=== PATIENT | female | born 1995 | race Caucasian/White ===

== ENCOUNTER 2020-10-11 08:07 | Emergency (ER) | payer OTHER, SELFPAY ==
[2020-10-11 08:12] VITALS: BP 137/70; PULSE 85; RESP 16; TEMP 37.1; O2SAT 99
--- NOTE | 2020-10-11 08:30 | ED.URI ---
HPI - URI/Sore Throat General Chief Complaint: Upper Respiratory Infection Stated Complaint: COLD SYMPTOMS/PRESSURE IN EARS Source: patient Mode of arrival: ambulatory Limitations: no limitations History of Present Illness HPI Narrative: 25-year-old female presents to urgent care with complaints of cold-like symptoms for the last 4 to 5 days. Patient complains of runny nose, nasal congestion, bilateral ear pressure, fatigue, watery eyes and dry cough. Patient reports history of ear infections. Patient has been taking the counter Sudafed, DayQuil, NyQuil and Zicam with minimal relief. Patient is non-smoker. Patient denies sick contacts. Patient denies recent travel but reports that she is due to fly in the next few days. Patient reports that she has received her Covid vaccine and declines Covid testing today. MD elicited complaint: cough, rhinorrhea and nasal congestion Onset (ago): day(s) (4) Able to tolerate fluids by mouth: Yes Exacerbating factors: nothing Relieving factors: nothing Treatments prior to arrival: cold medicine Related Data Home Medications Medication Instructions Recorded Confirmed levonorgestrel 1 device I-UTERINE ONCE 11/19/19 10/11/20 Allergies Allergy/AdvReac Type Severity Reaction Status Date / Time No Known Allergies Allergy Verified 10/11/20 08:14 Review of Systems Constitutional: Constitutional: Denies chills, Reports fatigue, Denies fever(s) and Denies weakness ENT: Denies dysphagia, Denies dizziness, Denies epistaxis, Reports nasal congestion and Denies sore throat Comments: Runny nose, bilateral ear pressure Respiratory: Respiratory: Denies chest congestion, Reports cough, Denies dyspnea and Denies wheezing Gastrointestinal: Gastrointestinal: Denies abdominal pain, Denies diarrhea, Denies nausea and Denies vomiting Integumentary/Breasts: Skin/Breast: Denies rash Neurologic: Denies vertigo, Denies dizziness, Denies syncope and Denies focal weakness [facility] Past Medical History Medical History Anxiety Family History Family History Mother Patient's mother is in good health Father Patient's father is in good health Social History Social History (Updated 10/11/20 @ 08:32 by Samantha Khan APRN) Smoking status: Never smoker Alcohol intake: never Comments At time of signature, I agree with nursing past medical, surgical, social and family history. There is no relevant family history pertinent to the presenting complaint. Exam Const: General: healthy appearing, no acute distress and alert Nutritional Appearance: well nourished Orientation/consciousness: patient oriented x3 HENMT: Ears: external ears normal General nose exam: Normal external nose present Mouth: Yes Normal oral and palatal mucosa present and Yes lip normal Throat: uvula midline Other: Moderate nasal congestion noted, mild erythema and bulging noted to right TM. Bilateral TMs intact. Fluid level noted bilaterally Neck: Neck: normal visual inspection Resp: Effort & Inspection: normal respiratory effort Auscultation: clear to auscultation bilaterally Cardio: Rate: regular rate Rhythm: regular rhythm Heart sounds: no murmurs Skin: General skin exam: normal color Rashes: no rashes Neuro: General: patient oriented x3, moves all extremities, no meningeal signs and CN's II-XI intact bilaterally Psych: Appearance: grossly normal Affect: normal affect Attitude: cooperative Thought content: Yes Normal thought content present Course Vital Signs Vital signs: Vital Signs Temperature 37.1 C 10/11/20 08:12 Pulse Rate 85 10/11/20 08:12 Respiratory Rate 16 10/11/20 08:12 Blood Pressure 137/70 10/11/20 08:12 Pulse Oximetry 99 10/11/20 08:12 Temperature 37.1 C 10/11/20 08:12 Pulse Rate 85 10/11/20 08:12 Respiratory Rate 16 10/11/20 08:12 Blood Pressure 137/
== END 2020-10-11 08:39 | disposition home or self-care (01) ==
PROVIDERS: Emergency Provider Nurse Practitioner Family; PCP Family Medicine
DX: H66.91 Otitis media, unspecified, right ear (principal); F41.9 Anxiety disorder, unspecified
CPT/HCPCS: 99213; G0463

== ENCOUNTER → 2021-06-04 01:54 | Outpatient (CLI) | payer OTHER, SELFPAY ==
[2021-06-05 14:05] LABS: SARS-CoV-2 RNA PCR Negative
== END ==
PROVIDERS: PCP Family Medicine; Visit Provider Family Medicine
DX: J06.9 Acute upper respiratory infection, unspecified (principal); Z20.822 Contact with and (suspected) exposure to COVID-19
CPT/HCPCS: C9803; U0003; U0005